=== PATIENT | male | born 1945 | race Caucasian/White ===

== ENCOUNTER 2016-04-28 11:56 | Day surgery (SDC) | payer MEDICARE, MEDICAID ==
--- NOTE | 2016-04-18 10:11 | EKG REPORT ---
SEVERITY:- NORMAL ECG - SINUS RHYTHM : Confirmed by: Yumiko Dietrich 18-Apr-2016 10:10:58
[2016-04-18 10:58] LABS: ABSOLUTE BASOPHILS # (AUTO) 0.1 10^3/uL (0.0-0.2); ABSOLUTE EOSINOPHILS # (AUTO) 0.1 10^3/uL (0.0-0.6); ABSOLUTE LYMPHOCYTES (AUTO) 1.2 10^3/uL (0.5-4.7); ABSOLUTE MONOCYTES (AUTO) 0.5 10^3/uL (0.1-1.4); ABSOLUTE NEUT (AUTO) 4.2 10^3/uL (1.7-8.2); BASOPHILS % (AUTO) 0.8 % (0-2); EOSINOPHILS % (AUTO) 1.4 % (0-6); HEMATOCRIT 45.3 % (37.9-51.0); HEMOGLOBIN 15.1 g/dL (13.5-17.0); MEAN CORPUSCULAR HEMOGLOBIN 30.7 pg (27.0-33.4); MEAN CORPUSCULAR HGB CONC 33.2 g/dL (32.0-36.0); MEAN CORPUSCULAR VOLUME 92 fl (80-97); MONOCYTES % (AUTO) 8.8 % (3-13); RED BLOOD COUNT 4.91 10^6/uL (4.35-5.55); RED CELL DISTRIBUTION WIDTH 14.1 % (11.5-14.0); WHITE BLOOD COUNT 6.1 10^3/uL (4.0-10.5)
[2016-04-18 11:08] LABS: ANION GAP 9 (5-19); BLOOD UREA NITROGEN 18 mg/dL (7-20); CALCIUM 9.2 mg/dL (8.4-10.2); CARBON DIOXIDE 31 mmol/L (22-30); CHLORIDE 105 mmol/L (98-107); CREATININE RESULT 0.85 mg/dL (0.52-1.25); GLUCOSE 92 mg/dL (75-110); POTASSIUM 4.2 mmol/L (3.6-5.0); SODIUM 144.8 mmol/L (137-145)
[~2016-04-28 11:56] MED LIST: LACTATED RINGERS 1000 ML IV PRN; LIDOCAINE 0.5% INJ-PF (5 MG/ML) 50 ML SDV SUBCUT PRN
[2016-04-28] MEDS ORDERED: ALBUTEROL SULFATE 0.083% NEB 2.5 MG/3 ML AMPUL NEB ONE (13:06)
[2016-04-28] MEDS ORDERED: BUPIVACAINE HCL 0.5%/EPI 1:200000 INJ 1.8 ML CARTRIDGE ONE (13:07)
[2016-04-28] MEDS ORDERED: LIDOCAINE 2%/EPINEPHRINE INJ 1.7 ML CARTRIDGE ONE (13:07)
[2016-04-28] MEDS ORDERED: FENTANYL CITRATE INJ/PF 100 MCG/2 ML AMPUL ONE (13:12)
[2016-04-28] MEDS ORDERED: MIDAZOLAM 2 MG/2 ML INJ ONE (13:12)
[2016-04-28] MEDS ORDERED: PROPOFOL INJ 200 MG/20 ML VIAL IV ONE (13:13)
[2016-04-28] MEDS ORDERED: OXYMETAZOLINE HCL 0.05% NASAL SPRAY 15 ML BOTTLE ONE (13:21)
[2016-04-28] MEDS ORDERED: OXYCODONE-ACETAMINOPHEN 5-325 MG TABLET PO PRN ×3 (14:35→15:19)
[2016-04-28] MEDS ORDERED: MORPHINE SULFATE 10 MG/ML INJ IV PRN (14:35)
[2016-04-28] MEDS ORDERED: MEPERIDINE HCL/PF INJ 25 MG/1 ML DISP.SYRIN IV PRN (14:35)
[2016-04-28] MEDS ORDERED: DIPHENHYDRAMINE HCL 50 MG/ML VIAL IV PRN (14:35)
[2016-04-28] MEDS ORDERED: FENTANYL CITRATE INJ/PF 100 MCG/2 ML AMPUL IV PRN ×3 (14:35)
[2016-04-28] MEDS ORDERED: PROMETHAZINE HCL INJ 25 MG/1 ML VIAL IV PRN ×2 (14:35)
--- NOTE | 2016-04-28 14:45 | Operative Report ---
Operative Report DATE OF SURGERY: 04/28/16 PREOPERATIVE DIAGNOSIS: Dental caries POSTOPERATIVE DIAGNOSIS: Same OPERATION: Surgical removal of teeth numbers 20, 21, 22, 23, 24, 25, 26, 27, 28 , 29 and 30 with alveoloplasties of the lower right and lower left quadrants SURGEON: REY VILLAVICENCIO ANESTHESIA: GA TISSUE REMOVED OR ALTERED: Teeth which were discarded COMPLICATIONS: None ESTIMATED BLOOD LOSS: 20 mL INTRAOPERATIVE FINDINGS: Nonrestorable and broken down teeth PROCEDURE: The patient was brought into operating room #2 and placed on the operating room table in supine position. General anesthesia was induced via a peripheral IV and continued utilizing endotracheal intubation. The patient was then prepped and draped in the usual fashion for an intraoral procedure. A total of 3 carpules of 2% lidocaine with 1:100,000 epinephrine and 2 carpules of half percent Marcaine with 1:200,000 epinephrine were delivered to the planned surgical sites via both infiltration and nerve block. The oropharynx and oral cavity were suctioned and a moistened oropharyngeal throat pack was placed. Full-thickness mucoperiosteal flaps were then developed. These were via envelope incisions. Ostectomy was completed as needed. Teeth were then delivered using elevators and forceps. Sockets were curetted free of any debris. Alveoloplasties were completed using rongeurs and bone files. The flaps were reapproximated and sutured using 4-0 chromic gut suture. The oral cavity was suctioned, the throat pack removed and the oropharynx suctioned. Gauze packs were placed bilaterally to aid in continued hemostasis. The patient was awakened from general anesthesia, extubated in the operating room and taken recovery room in spontaneous breathing fashion.
[2016-04-28 16:05] VITALS: BP 115/70
[2016-04-28] MEDS ORDERED: SUCCINYLCHOLINE CHLORIDE INJ 200 MG/10 ML VIAL ONE (16:19)
== END 2016-04-28 16:07 | disposition home or self-care (01) ==
LOC: OROUT 11:56
PROVIDERS: ATTEND Dentist Oral and Maxillofacial Surgery
PROC: 0NQTXZZ Repair Right Mandible, External Approach (ICD-10-PCS; 2016-04-28)
PROC: 0CDXXZ1 Extraction of Lower Tooth, Multiple, External Approach (ICD-10-PCS; 2016-04-28)
PROC: 0NQVXZZ Repair Left Mandible, External Approach (ICD-10-PCS; principal; 2016-04-28 14:00)
DX: K02.9 Dental caries, unspecified (principal); I10 Essential (primary) hypertension; J44.9 Chronic obstructive pulmonary disease, unspecified; M19.90 Unspecified osteoarthritis, unspecified site; E11.9 Type 2 diabetes mellitus without complications; Z79.899 Other long term (current) drug therapy; Z86.73 Personal history of transient ischemic attack (TIA), and cerebral infarction without residual deficits; I69.854 Hemiplegia and hemiparesis following other cerebrovascular disease affecting left non-dominant side
CPT/HCPCS: 93005; 36415; 82962; 85025; 80048; 71020; 93010; 41899; 41874 ×2; J2250; J3490; J3010; J0330; J2704; A9270; 170